=== PATIENT | male | born 1965 | race Caucasian/White ===

== ENCOUNTER → 2023-09-03 13:03 | Outpatient (REF) | payer OTHER, SELFPAY ==
[2023-09-03 14:01] LABS: Blood Urea Nitrogen 14 mg/dl (9-20); Calcium 9.6 mg/dl (8.4-10.2); Carbon Dioxide 26 mmol/L (22-30); Chloride 104 mmol/L (98-107); Glucose 71 mg/dl (70-99); Potassium 4.5 mmol/L (3.5-5.1); Sodium 140 mmol/L (135-145); eGFR > 60.00
== END ==
LOC: RAD 13:03
PROVIDERS: ATTENDING PHYSICIAN Family Medicine; FAMILY PHYSICIAN Family Medicine
DX: R22.0 Localized swelling, mass and lump, head (principal)
CPT/HCPCS: 36415; 70470; 80048; Q9967

== ENCOUNTER 2023-09-05 19:20 | Inpatient (IN) | payer OTHER, SELFPAY ==
[2023-09-05 14:51] VITALS: BMI 38.1
[2023-09-05 14:54] VITALS: BP 171/96
[2023-09-05 15:28] LABS: % Basophils 0.7 % (0-2); % Eosinophils 3.6 % (0-6); % Immature Granulocytes 0.3 % (0-0.5); % Lymphocytes 25.6 % (20.5-51.1); % Monocytes 13.8 % (1.7-9.3); Absolute Eosinophils 0.2 10^3/uL (0-0.7); Absolute Lymphocytes 1.5 10^3/uL (1.2-3.4); Absolute Monocytes 0.8 10^3/uL (0.1-0.6); Absolute Neutrophils 3.2 10^3/uL (1.4-6.5); Hematocrit 42.6 % (39.0-52.0); Hemoglobin 15.5 g/dL (13.0-18.0); Mean Corp Hgb Conc. 36.4 g/dL (33.0-37.0); Mean Corpuscular Hgb 30.9 pg (27.0-31.0); Mean Corpuscular Volume 84.9 fL (80.0-94.0); Mean Platelet Volume 8.6 fL (7.4-10.4); Nucleated Red Blood Cells % 0 % (-); Platelet Count 201 10^3/uL (130-400); Red Blood Cell Count 5.02 10^6/uL (4.70-6.10); Red Cell Dist. Width 12.6 % (11.5-14.5); White Blood Cell Count 5.8 10^3/uL (4.8-10.8)
[2023-09-05 15:38] LABS: Lactic Acid 1.5 mmol/L (0.7-2.0)
[2023-09-05 15:40] LABS: ALT (SGPT) 28 U/L (0-50); AST (SGOT) 26 U/L (17-59); Albumin 4.3 g/dl (3.5-5.0); Alkaline Phosphatase 80 U/L (38-126); Blood Urea Nitrogen 12 mg/dl (9-20); Calcium 9.1 mg/dl (8.4-10.2); Carbon Dioxide 22 mmol/L (22-30); Chloride 105 mmol/L (98-107); Glucose 118 mg/dl (70-99); Potassium 4.1 mmol/L (3.5-5.1); Sodium 136 mmol/L (135-145); Total Bilirubin 0.6 mg/dl (0.2-1.3); Total Protein 7.3 g/dl (6.3-8.2); eGFR > 60.00
--- NOTE | 2023-09-05 16:27 | ED.GENMED ---
History of Present Illness
General
Chief Complaint: Skin Problem
Source: patient
Exam Limitations: none
Time Seen by Provider: 09/05/23 16:06
Nursing documentation reviewed up to this point in time: agreed with
History of Present Illness
History of Present Illness:
57-year-old male with a past medical history of OLGA on nightly CPAP who presents to the emergency department for evaluation of right-sided facial swelling. Patient reports onset of symptoms about a week ago�he reports that he had some subtle
swelling in the periorbital region that extended towards the right preauricular area. He says that initially symptoms were subtle but they were progressive over the past week and ultimately saw his primary doctor a few days ago (Friday). He had
an outpatient CT scan of the head which showed signs consistent with right-sided parotitis. He was prescribed Augmentin which she has been taking since that time however symptoms have actually been worsening rather than improving and he has had
increasing swelling particularly in the periorbital region. His eyelid is now significantly swollen. He says that he developed a minor wound in the right forehead and increasing redness. He says it is starting to cause him increasing pain. Was
referred to the emergency room for assessment. He says he did have some chills but no fever. He denies any tongue swelling or sensation of throat swelling. He denies any pain in the eye itself or loss of vision. He denies any trauma. No edema
in the rest of extremities. He denies any headache or neck pain or any other complaints.
Past History
Past History
ED Past Medical History: Hypercholesterolemia
ED Past Surgical History: None
Social History
Tobacco: Non-smoker
Alcohol: Occasional
Personal:
Living: with family
Employment: Employed
Family History
Family History: Negative Early CAD or CAD
Review of Systems
Review of Systems
All Other Systems: ROS reviewed and negative except as documented in HPI and ROS
Constitutional: Reports chills; Denies fever
EENT: Reports other (Facial swelling); Denies sore throat
Respiratory: Denies cough or trouble breathing
ABD/GI: Denies vomiting
Musculoskeletal: Denies edema
Neurological: Denies dizzy or headache
Phy Exam
Physical Exam
Physical Exam:
General: Awake, alert, oriented x3; no acute distress
Head: Normocephalic, atraumatic
Eyes: Conjunctiva normal, EOMI, pupils equal round and reactive to light bilaterally; he has significant right periorbital edema
Ears: External ear is normal bilaterally with no swelling; he has tenderness and swelling and some induration in the right preauricular region
Nose: No blood in nares, no swelling of the turbinates
Throat: Airway intact, handling secretions, no tongue swelling or tongue elevation, midline uvula
Neck: Trachea midline, supple without meningismus, no palpable adenopathy
Lungs: Breathing comfortably no distress
Heart: Regular rate
Neuro: Cranial nerves grossly intact, speech fluid
Skin: Patient has erythema of the right side of his face most notably in the right forehead where he also has a minor superficial wound with overlying eschar (approximately 0.5 cm diameter); he has significant periorbital edema but also has edema in
the right maxillary and preauricular region as well as in the right forehead; no erythema or edema in the submental region (picture below)
Extremities: No edema in extremities, equal pulses in all extremities
Scores
Heart Failure Risk
Heart Failure Risk Score: Not Applicable
Heart Score for Chest Pain Patients
STEMI patient?: Not applicable
Withdrawal Assessment of Alcohol
Withdrawal Assessment Completed?: Not applicable
Course
Orders/Labs/Results
Orders:
Orders
09/05/23 15:18
Complete Blood Count/With Diff Urgent
Comprehensive Metabolic Panel Urgent
Lactic Acid Q4H
Comment: ON ICE, CANCEL 2ND ORDER IF FIRST LACTIC ACID LEVEL <2
Lactic Acid Q4H
Comment: ON ICE, CANCEL 2ND ORDER IF FIRST LACTIC ACID LEVEL <2
09/05/23 16:18
CT Facial Bones W/ Iv Contrast Urgent
Comment:
Reason For Exam: R facial swelling (maxilla, periorbital, forehead)
09/05/23 17:51
Vancomycin [Vancocin] 1,500 mg 0.9% Sodium Chloride [Nss] 20 ml 0.9% Sodium Chloride 250 ml [Nss] 250 ml IV NOW
09/05/23 17:52
Ampicillin/Sulbactam 3 G [Unasyn] 3 gm 0.9% Sodium Chloride 100 ml [Nss] 100 ml IV NOW
09/05/23 17:57
ENT CONSULT Routine
Consulting Provider: Irvin Mercedes
Was physician already notified: Yes
Abnormal Lab Results
09/05/23
15:18
Absolute Monos (auto) 0.8 H 10^3/uL
(0.1-0.6)
Monocytes % 13.8 H %
(1.7-9.3)
Glucose 118 H mg/dl
(70-99)
09/05/23 15:18
09/05/23 15:18
Vital Signs
Initial and Last Documented VS:
Initial Vital Signs
Temp Pulse Resp BP Pulse Ox
37.2 C 93 16 171/96 98
09/05/23 14:54 09/05/23 14:54 09/05/23 14:54 09/05/23 14:54 09/05/23 14:54
Last Documented Vital Signs
Temp Pulse Resp BP Pulse Ox
37.2 C 93 16 171/96 98
09/05/23 14:54 09/05/23 14:54 09/05/23 14:54 09/05/23 14:54 09/05/23 14:54
MDM/Problems Addressed
Differential Diagnosis Includes:
Facial cellulitis, severe parotitis, SVC syndrome
MDM/Problems Addressed:
57-year-old male presents with progressive right-sided facial swelling over the past week not improving after 72 hours of p.o. Augmentin. Hypertensive but otherwise normal vitals. Physical exam as above. Will check basic labs including CBC and
CMP. Given significant progression of symptoms in the past [address] scan of the face. Will monitor closely reassess after the above.
Labs reviewed: CBC and CMP unremarkable. CT shows diffuse edema of the right side of the face, question sialoadenitis in the right sublingual gland but very low suspicion that this accounts for his acute symptoms especially given majority of his
symptoms with periorbital and preauricular. I suspect this is likely an acute facial cellulitis and he has failed 3 days of outpatient antibiotics. Case discussed with ENT recommended IV antibiotics and admission, they will consult on patient.
Case discussed with hospitalist for admission.
Acute Exacerbation and/or Progression of Chronic Illness:
Acutely hypertensive
Acute Exacerbation and/or Progression of Chronic Illness: HTN
*Radiology
Radiology exam reviewed: radiology read reviewed
*Pulse Oximetry
Patient hypoxic: no
*Critical Care Note
Total Time (30-74mins, 75-104mins- exclusive of procedures): Not Applicable
Data Reviewed
Review of Other/Old Records Reveals: Radiology Studies (Reviewed outpatient CT scan from 09/03/2023)
Source: patient and records
Patient Management
Discussion with other providers: Hospitalist (Discussed with hospitalist) and Lumber Cutter (Discussed with ENT)
Escalation/DeEscalation of care consider admission/obs:
Admission indicated
ED Attending Note
-
Portions of this chart may have been created with voice recognition software.� Occasional wrong word or��sound alike� substitutions may have occurred due to the inherent limitations of voice recognition software.
Discharge Plan
Departure
Patient Disposition: Admit
Date of Disposition: 09/05/23
Time of Disposition: 18:01
Admit to doctor: Bucky
Presentation/result/management discussed w/ accepting MD/DO: Hospitalist
Discharge Problem:
Facial cellulitis
Prescriptions:
No Action
sulfamethoxazole-trimethoprim 800-160 mg tablet
1 tab PO BID
loratadine [Claritin] 10 mg Tablet
10 mg PO DAILYPRN PRN (Reason: allergies)
amoxicillin-pot clavulanate 875-125 mg tablet
1 tab PO BID
Referrals:
Freddy Du MD [Family Provider] -
Interventions
Interventions:
*Risk Screen - Suicide Last Done: 09/05/23 14:54
*General Assessment Last Done: 09/05/23 14:54
*Neglect/Abuse Screening Last Done: 09/05/23 14:54
ED-Skin Assessment Last Done: 09/05/23 16:36
Discharge Date and Time
Print Language: KOSOVAN
[2023-09-05 18:00] VITALS: BP 148/90
--- NOTE | 2023-09-05 18:19 | HPS.HSE ---
Family Physician
-
Family Physician: Freddy Du
Chief Complaint
-
Facial cellulitis
History of Present Illness
Patient is a 57-year-old male with past medical history significant for seasonal allergies as well as OLGA on CPAP who presents to the emergency department with approximately 1 week of right-sided periorbital redness swelling and tenderness.
Patient started having redness over the nasal bridge use about 2 to 3 weeks ago. He felt this was associated with a CPAP machine. He did have cultures obtained and was found to have a staph in the skin and started on topical cream. A few days
later he started developing redness and swelling right above the right eye and as well as in the oriental orthodox. It felt significant induration and tenderness at that site. He was also noticing some headache as well as chills. On Friday he had
significant headache and he went to the physician. He was diagnosed with cellulitis at that time and told to stop amoxicillin which she started on Friday. He was told that if the symptoms are not improving in 2 days then he can start taking
Bactrim. However patient reported that initially the swelling went down but the main between and Friday it worsened overnight. He also had some chills. Patient denies any known insect bites. He denies any trauma. He reports seasonal
allergies but denies any recent sinus tenderness.
In the ED patient was afebrile, was hypertensive with a blood pressure of 171/96 otherwise hemodynamically stable and in no acute distress. His CBC was without leukocytosis and hemoglobin was completely within normal limits with normal platelet
count. Chemistries were also normal. Patient had a CT of the head which shows a right-sided periorbital and infraorbital edema consistent with cellulitis. There is no fluid collection or abscess noted.
Medical History
Past Medical History
Past Medical History: Reports Other (OLGA on CPAP)
Past Surgical History: Reports None
Social History
Tobacco: Non-smoker
Alcohol: Occasional
Drug: None
Personal: Single
Living: Alone
Employment: Employed
Family History
Family History: Cancer (Mother with h/o colon ca, ) and Diabetes
Allergies / Home Medications
Allergies reflects when Allergies were last updated in [facility].
Home Medications with original date entered in [facility]
Allergy/Medication List:
Allergies
Allergy/AdvReac Type Severity Reaction Status Date / Time
No Known Allergies Allergy Verified 09/05/23 14:53
Home Medications
amoxicillin 875 mg-potassium clavulanate 125 mg tablet 1 tab PO BID 09/05/23
loratadine 10 mg tablet (Claritin) 10 mg PO DAILYPRN PRN allergies 09/05/23
sulfamethoxazole 800 mg-trimethoprim 160 mg tablet 1 tab PO BID 09/05/23
Review of Systems
-
History Source: Patient
Constitutional: Reports Chills
EENT: Reports Runny Nose and Other (headache, facial pain)
Respiratory: Reports No Symptoms
Cardiac: Reports No Symptoms
Abdomen/GI: Reports No Symptoms
: Reports No Symptoms
Musculoskeletal: Reports No Symptoms
Skin: Reports Rash
Neurological: Reports No Symptoms
Endocrine: Reports No Symptoms
Hematologic/Lymphatic: Reports No Symptoms
Psych: Reports No Symptoms
Physical Exam
Vital Signs
Vital Signs
Temp Pulse Resp BP Pulse Ox
99 F 93 16 171/96 98
09/05/23 14:54 09/05/23 14:54 09/05/23 14:54 09/05/23 14:54 09/05/23 14:54
Physical Exam
General: Well Developed and Comfortable
HEENT: NormoCephalic, Anicteric, Moist mucous membranes, PERRLA and Other (Eschar above the right eyelid with surrounding erythema, tenderness and induration. Moderate swelling and induration along the right zygomatic arch and oriental orthodox)
Respiratory: Clear
Cardiac: S1/S2
Breast: Deferred by me
GI: Soft, Non Tender and Non Distended
Rectal: Other
Genito-urinary: Deferred by me
Musculoskeletal: No Clubbing, No Cyanosis and No Edema
Skin: Warm
Neuro: AO x 3
Hematologic/Lymphatic: No Lymphadenopathy
Psych: Calm
Laboratory Results
-
09/05/23 15:18
09/05/23 15:18
Laboratory Results
Lactic Acid 1.5 mmol/L (0.7-2.0) 09/05/23 15:18
Lactic Acid 1.5 mmol/L (0.7-2.0) 09/05/23 15:18
Total Bilirubin 0.6 mg/dl (0.2-1.3) 09/05/23 15:18
AST 26 U/L (17-59) 09/05/23 15:18
ALT 28 U/L (0-50) 09/05/23 15:18
Alkaline Phosphatase 80 U/L (38-126) 09/05/23 15:18
Data Reviewed
-
CT Scan: Report Reviewed by me
Lab Data: Labs Reviewed by me
Impression/Plan
-
IMPRESSION:
PLAN:
1. Preseptal Cellulitis - Patient with likely cellulitis w/o abscess. No orbital involvement. No h/o trauma. No obvious sinusitis. Appears to have failed outpatient Augmentin. Started on bactrim today but symptoms already worse. H/O facial
staph colonization or infection per patient long term but unclear if MRSA. Currently hemodynamically stable, low grade temp. ENT to see in am.
- admit to gen med
- agree with vanc/zosyn for now
- blood cultures if febrile
- sereial examinations
- ENT notified and to see in am.
2. OLGA
- CPAP 14 HS
3. HTN - BP elevated today but denies h/o HTN
- monitor for now, pain control and re-evaluate
DVT PPX - lovenox sq
Full Code
[2023-09-05] MEDS: UNASYN IV ×2 (18:25→23:17)
[2023-09-05] MEDS: VANCOCIN 300 MG IV (19:06)
[2023-09-05] MEDS: VANCOCIN 300 ML IV (19:06)
[2023-09-05 20:00] VITALS: BP 133/83
[2023-09-05 20:22] VITALS: BP 150/92; BMI 37.8
--- NOTE | 2023-09-05 20:42 | PHA.VAN.IN ---
Assessment
- Assessment
Renal Function: Appears similar to baseline
Concomitant Antimicrobials: UNASYN
- Previous Dosing Experience
Previous Regimen: NONE
AUC Dosing Plan
- Dosing Variables
Dosing Weight (kg): 116.2
Dosing CrCl (ml/min): 100
Vd coefficient (L/kg): 0.6
- Empiric Dosing
Initial / Loading Dose: 2GM TOTAL
Maintenance Regimen: 1500MG IV Q12H
Estimated AUC (mcg*h/mL): 525
Estimated Peak (mcg*h/mL): 33.1
Estimated Trough (mcg/ml): 13.2
Estimated Half Life (H): 7.9
Pharmacokinetics Vancomycin I
- -
Patient Age: 57
Patient Sex: Male
Vancomycin Day #: 1
Indication: Skin And Soft Tissue (PRE-SEPTAL CELLULITIS)
Requesting Provider: MUSTAPHA
Height / Weight:
Height 5 ft 9 in
Actual Weight 116.176 kg
Pertinent Past Medical History: FAILED OUTPATIENT TX W/AUGMENTIN
- Vital Signs / Lab Results
Temp Pulse Resp BP Pulse Ox
98.2 F 79 18 150/92 96
09/05/23 20:22 09/05/23 20:22 09/05/23 20:22 09/05/23 20:22 09/05/23 20:22
Lab Results - Hematology
09/05/23
15:18
WBC 5.8
Lab Results - Chemistry
09/05/23
15:18
BUN 12
Creatinine 0.8
Albumin 4.3
09/05/23 09/05/23
15:18 15:18
Lactic Acid 1.5 1.5
[2023-09-05] MEDS: BENADRYL 25 MG IV (21:21)
[2023-09-05] MEDS: VANCOCIN HCL 500 MG 100 IV (22:04)
[2023-09-05 22:30] VITALS: PULSE 76
[2023-09-05 23:10] VITALS: BP 119/79
--- NOTE | 2023-09-05 23:11 | PTCARENOTE ---
Pt. arrived to unit from ED via stretcher. Pt. able to safely ambulate into room 336-1 on . Pt. with IV Vanco running upon transfer to floor. Head and face noted to be red, patient c/o of itchiness. Infusion paused. MADDIE Parkinson
notified. Instructed to run vanco at slower rate and stat benedryl x1 ordered. Pt. reports feeling better after. Redness noted to be lesser. Pt. AAOx3 and able to make needs known. Oriented to unit. Call pacheco within reach. Plan of care ongoing.
[2023-09-06] MEDS: UNASYN IV ×2 (05:31→12:46)
[2023-09-06] MEDS: TYLENOL 650 MG PO ×2 (05:36→12:52)
[2023-09-06] MEDS: VANCOCIN 300 MG IV ×2 (06:09→18:01)
[2023-09-06] MEDS: VANCOCIN 300 ML IV ×2 (06:09→18:01)
[2023-09-06 07:30] VITALS: BP 127/85
[2023-09-06 07:33] LABS: Hematocrit 43.5 % (39.0-52.0); Hemoglobin 15.5 g/dL (13.0-18.0); Mean Corp Hgb Conc. 35.6 g/dL (33.0-37.0); Mean Corpuscular Hgb 31.1 pg (27.0-31.0); Mean Corpuscular Volume 87.2 fL (80.0-94.0); Mean Platelet Volume 8.9 fL (7.4-10.4); Platelet Count 199 10^3/uL (130-400); Red Blood Cell Count 4.99 10^6/uL (4.70-6.10); Red Cell Dist. Width 12.6 % (11.5-14.5); White Blood Cell Count 7.1 10^3/uL (4.8-10.8)
[2023-09-06 08:11] LABS: Blood Urea Nitrogen 15 mg/dl (9-20); Calcium 8.8 mg/dl (8.4-10.2); Carbon Dioxide 22 mmol/L (22-30); Chloride 104 mmol/L (98-107); Estimated Creatinine Clearance 117 ml/min; Glucose 106 mg/dl (70-99); Potassium 4.2 mmol/L (3.5-5.1); Sodium 138 mmol/L (135-145); eGFR > 60.00
--- NOTE | 2023-09-06 08:31 | PHA.VAN.FU ---
Vancomycin Assessment / Plan
- Assessment
Renal Function: Stable
WBC's are: Stable
In the past 24 hrs, patient has been: Afebrile
Concomitant Antimicrobials: Unasyn
- Dosing Plan
Continue: Vanc 1500mg IV q12h
- Monitoring Plan
No level(s) ordered at this time: Consider levels after 09/06 1800 dose
- Follow Up
Pharmacy will continue to follow.
Vancomycin Follow UP
- -
Patient Age: 57
Patient Sex: Male
Vancomycin Day #: 2
Indication: Skin And Soft Tissue (PRE-SEPTAL CELLULITIS)
Requesting Provider: MUSTAPHA
Height / Weight:
Height 5 ft 9 in
Actual Weight 116.176 kg
Pertinent Past Medical History: FAILED OUTPATIENT TX W/AUGMENTIN
- Vital Signs / Lab Results
Temp Pulse Resp BP Pulse Ox
98.1 F 78 16 127/85 93
09/06/23 07:30 09/06/23 07:30 09/06/23 07:30 09/06/23 07:30 09/06/23 07:30
Lab Results - Hematology
09/05/23 09/06/23
15:18 06:00
WBC 5.8 7.1
Lab Results - Chemistry
09/05/23 09/06/23
15:18 06:00
BUN 12 15
Creatinine 0.8 0.9
Estimated Creat Clear 117
Albumin 4.3
09/05/23 09/05/23
15:18 15:18
Lactic Acid 1.5 1.5
--- NOTE | 2023-09-06 10:42 | W.PN.HOSP.TC ---
Today's Communication/Plan
-
see outlined plan
Assessment / Plan
Assessment / Plan
Assessment:
Preseptal cellulitis, R face
- failed OP Abx (Augmentin, Bactrim)
- CT: Right sublingual sialoadenitis with right cervical lymphadenopathy and right periorbital, infraorbital and maxillary soft tissue swelling/edema but no abscess
- no Orbital involvement, no trauma, no sinusitis
- reported staph culture outpatient
- continue IV Vancomycin - requires intensive monitoring
- continue IV Unasyn
- ENT and ID evaluations; may consider steroids to help with swelling
OLGA
- on CPAP 14 HS
Elevated BP from pain
- monitor
DVT ppx: Lovenox
Code: Full
Anticipated Discharge: > 48 hours
Subjective/Interval History
-
Date of Service: September 06, 2023
reports ongoing swelling around R eye, reports fluctuance around R parotid area
Objective Data
-
Labs:
Laboratory Results
09/06/23
06:00
WBC 7.1
Hgb 15.5
Hct 43.5
Plt Count 199
Sodium 138
Potassium 4.2
Chloride 104
Carbon Dioxide 22
BUN 15
Creatinine 0.9
Glucose 106 H
Calcium 8.8
Vital Signs:
Vital Signs
Temp Pulse Resp BP Pulse Ox
98.1 F 78 16 127/85 93
09/06/23 07:30 09/06/23 07:30 09/06/23 07:30 09/06/23 07:30 09/06/23 07:30
I&O
09/05/23 09/06/23 09/07/23
06:59 06:59 06:59
Intake Total 480 / 480
Balance 480 / 480
Physical Exam
-
General: No Apparent Distress
HEENT: Normocephalic, Atraumatic and Other (Eschar above the right eyelid with surrounding erythema, tenderness and induration. Moderate swelling and induration along the right zygomatic arch and holiness)
Respiratory: Negative Wheezes or Rales
Cardiac: Regular Rhythm and S1/S2
GI: Soft and Nontender
Genito-urinary: No Costovertebral Tender
Neuro: AO x 3
Hematologic / Lymphatic: No Lymphadenopathy
Psych: Calm
Data Reviewed
-
Total Time Spent with Patient (in minutes): 51
Labs: Labs Reviewed by me
--- NOTE | 2023-09-06 12:38 | CON.MD ---
Consultation - Medical
-
Patient seen and evaluated at the bedside.
Full consult dictated.
A/P 57-year-old male with right-sided facial and preorbital cellulitis.
-This seems to me most consistent with an insect bite, possibly a spider.
-Patient has an area of ulceration just above lateral aspect of right brow.
-The swelling is likely spreading down from the site of the bite and causing preseptal edema around the right eye.
-Patient has some reactive lymphadenopathy in the parotid and in the submental area as well.
-CT scan reviewed, no evidence of any sinus infection.
-Patient does not have an elevated white blood cell count, afebrile.
-His symptoms may be more inflammatory than infectious. However, I would continue to cover him with antibiotics.
-Infectious disease to see patient.
-Would add Bactroban topically over right eye to area of skin breakdown.
-Lab test for Lyme disease.
-Start IV Decadron to help with swelling.
-Can treat with Benadryl as well.
-Keep head elevated.
-I will follow the patient along with you.
[2023-09-06] MEDS: DECADRON 4 MG IV ×3 (12:46→23:59)
--- NOTE | 2023-09-06 13:44 | CON.ID ---
Consultation
-
Date/Time Consultation Requested: 09/06/2023 08:03
Date/Time Consultation Performed: 1330
Requesting Provider: Dr. Rascon
Performing Provider: Dr. Yee
Reason for Consultation: Facial cellulitis
Chief Complaint / Past History
History of Present Illness
Trent Aviles is a 57-year-old man being evaluated at the request of Dr. Rascon in regards to facial cellulitis. History is obtained from chart review, along with patient interview. The patient has significant past medical history only for
dyslipidemia and obstructive sleep apnea and reports that approximately 1 week ago he began to have some right facial swelling. He saw his PCP and an outpatient CT was ordered which revealed parotitis. Patient was started on Augmentin, but
presents to [facility] on 09/04 secondary to worsening symptoms including increasing swelling of the periorbital region, along with some intermittent chills. He denied any fever. He denies any eye pain or change in vision. No history of
trauma to the area.
The patient additionally reports that he follows with dermatology and saw them approximately 1 month ago. He admits to occasional drainage in the nasolabial fold area and previously was prescribed mupirocin for a 'staph infection'. He does not
know whether this meant coag negative staph, MSSA or MRSA. At present, he notes that the swelling of his right eye has improved, even since this morning. He reports no difficulty with his vision. He notes prior history of scalp folliculitis.
Past History
Additional Past Medical History:
OLGA (uses CPAP)
Dyslipidemia
Past Surgical History: None
Allergy History:
No Known Allergies Allergy (Verified 09/05/23 14:53)
Medications Reviewed: Yes
Current Antibiotics:
Vancomycin
Unasyn
Social History
Tobacco: Non-Smoker
Alcohol: None
Drug: None
Personal:
Living: With Family
Employment: Employed
Review of Systems
Vital Signs
Temp Pulse Resp BP Pulse Ox
98.1 F 78 16 127/85 93
09/06/23 07:30 09/06/23 07:30 09/06/23 07:30 09/06/23 07:30 09/06/23 07:30
Physical Exam
Physical Exam
Constitutional: No Acute Distress, Comfortable and Non-toxic
Eyes: Pupils Equal, No Conjunctival Hemorrhage, Sclera Anicteric and Other (Right eyelid swelling noted.)
Oral: No Thrush and No Ulcers
Cardiovascular: S1/S2; Negative S3/S4
Pulmonary: Non Labored
Gastrointestinal: Soft, Non Tender and Non Distended
Extremities: Negative Cyanosis or Erythema
Neurological: Awake and Alert
Psychological: Calm
Lab / Diagnostic Study Results
09/06/23 06:00
09/06/23 06:00
Abs Immat Gran (auto) 0.0 10^3/uL (0-0.05) 09/05/23 15:18
Absolute Neuts (auto) 3.2 10^3/uL (1.4-6.5) 09/05/23 15:18
Absolute Lymphs (auto) 1.5 10^3/uL (1.2-3.4) 09/05/23 15:18
Absolute Monos (auto) 0.8 10^3/uL (0.1-0.6) H 09/05/23 15:18
Absolute Basos (auto) 0.0 10^3/uL (0-0.2) 09/05/23 15:18
Immature Gran % 0.3 % (0-0.5) 09/05/23 15:18
Neutrophils % 56.0 % (42.2-75.2) 09/05/23 15:18
Lymphocytes % 25.6 % (20.5-51.1) 09/05/23 15:18
Monocytes % 13.8 % (1.7-9.3) H 09/05/23 15:18
Eosinophils % 3.6 % (0-6) 09/05/23 15:18
Basophils % 0.7 % (0-2) 09/05/23 15:18
Lactic Acid 1.5 mmol/L (0.7-2.0) 09/05/23 15:18
Lactic Acid 1.5 mmol/L (0.7-2.0) 09/05/23 15:18
Assessment / Plan
Right facial cellulitis
Periorbital cellulitis
Suspected right parotitis
Recommendations:
Continue with vancomycin. Transition Unasyn to cefazolin.
Continue to follow clinically. If improvement over the next 24 hours, may be able to transition to oral therapy.
--- NOTE | 2023-09-06 15:02 | CM ---
Chart reviewed and met with pt
Admitted with preseptal cellulitis - receiving IV antibiotics
Pt reports lives alone in a multi-story home
Independent, works FT as chief legal officer
DME - CPAP with [employer]
SNF/HH - no hx
PCP - Dr Freddy Callahan
Pharm - [facility]
CM will follow for d/c needs
Plan - Anticipate home no needs
[2023-09-06 15:45] VITALS: BP 134/74
[2023-09-06] MEDS: ANCEF 10 IV ×2 (16:32→23:57)
[2023-09-06] MEDS: BACTROBAN 2% OINTMENT 1 APPLIC TOPICAL ×2 (16:33→21:33)
[2023-09-06 22:45] VITALS: PULSE 88
[2023-09-06 23:29] VITALS: BP 138/80
[2023-09-07] MEDS: VANCOCIN 300 MG IV (06:13)
[2023-09-07] MEDS: VANCOCIN 300 ML IV (06:13)
[2023-09-07] MEDS: DECADRON 4 MG IV ×2 (06:13→14:12)
[2023-09-07 07:18] VITALS: BP 127/82
[2023-09-07 07:35] LABS: Hemoglobin 15.8 g/dL (13.0-18.0); Mean Corp Hgb Conc. 35.9 g/dL (33.0-37.0); Mean Corpuscular Hgb 30.6 pg (27.0-31.0); Mean Corpuscular Volume 85.1 fL (80.0-94.0); Platelet Count 246 10^3/uL (130-400); Red Blood Cell Count 5.17 10^6/uL (4.70-6.10); Red Cell Dist. Width 12.1 % (11.5-14.5); White Blood Cell Count 11.8 10^3/uL (4.8-10.8)
[2023-09-07 07:38] LABS: Blood Urea Nitrogen 20 mg/dl (9-20); Calcium 9.8 mg/dl (8.4-10.2); Carbon Dioxide 21 mmol/L (22-30); Chloride 103 mmol/L (98-107); Estimated Creatinine Clearance 117 ml/min; Glucose 183 mg/dl (70-99); Potassium 4.7 mmol/L (3.5-5.1); Sodium 138 mmol/L (135-145); eGFR > 60.00
--- NOTE | 2023-09-07 08:42 | PHA.VAN.FU ---
Vancomycin Assessment / Plan
- Assessment
Renal Function: Stable
WBC's are: Trending Up
In the past 24 hrs, patient has been: Afebrile
Concomitant Antimicrobials: Cefazolin
- Dosing Plan
Continue: Vanc 1500mg IV q12h
- Monitoring Plan
Peak Level: 09/06 at 2100
Trough Level: 09/07 at 0530
- Follow Up
Pharmacy will continue to follow.
Vancomycin Follow UP
- -
Patient Age: 57
Patient Sex: Male
Vancomycin Day #: 3
Indication: Skin And Soft Tissue (PRE-SEPTAL CELLULITIS)
Requesting Provider: MUSTAPHA
Height / Weight:
Height 5 ft 9 in
Actual Weight 116.176 kg
Pertinent Past Medical History: FAILED OUTPATIENT TX W/AUGMENTIN
- Vital Signs / Lab Results
Temp Pulse Resp BP Pulse Ox
97.6 F 89 16 127/82 93
09/07/23 07:18 09/07/23 07:18 09/07/23 07:18 09/07/23 07:18 09/07/23 07:18
Lab Results - Hematology
09/05/23 09/06/23 09/07/23
15:18 06:00 05:35
WBC 5.8 7.1 11.8 H
Lab Results - Chemistry
09/05/23 09/06/23 09/07/23
15:18 06:00 05:35
BUN 12 15 20
Creatinine 0.8 0.9 0.9
Estimated Creat Clear 117 117
Albumin 4.3
09/05/23 09/05/23
15:18 15:18
Lactic Acid 1.5 1.5
[2023-09-07] MEDS: BACTROBAN 2% OINTMENT 1 APPLIC TOPICAL (09:50)
[2023-09-07] MEDS: ANCEF 10 IV (09:50)
--- NOTE | 2023-09-07 09:54 | W.PN.HOSP.TC ---
Today's Communication/Plan
-
await ENT/ID recs, for now continue IV abx/steroids
Assessment / Plan
Assessment / Plan
Assessment:
Preseptal cellulitis, R face
- failed OP Abx (Augmentin, Bactrim)
- CT: Right sublingual sialoadenitis with right cervical lymphadenopathy and right periorbital, infraorbital and maxillary soft tissue swelling/edema but no abscess
- no Orbital involvement, no trauma, no sinusitis
- reported staph culture outpatient
- continue IV Vancomycin - requires intensive monitoring
- continue IV Ancef
- continue Decadron
- appreciate ENT and ID recs
OLGA
- on CPAP 14 HS
Elevated BP from pain
- monitor
DVT ppx: Lovenox
Code: Full
Anticipated Discharge: Within 24 hours
Subjective/Interval History
-
Date of Service: September 07, 2023
denies any new complaints at present
reports swelling improving and able to easily open R eyelid
Objective Data
-
Labs:
Laboratory Results
09/07/23
05:35
WBC 11.8 H
Hgb 15.8
Hct 44.0
Plt Count 246 D
Sodium 138
Potassium 4.7
Chloride 103
Carbon Dioxide 21 L
BUN 20
Creatinine 0.9
Glucose 183 H
Calcium 9.8
Vital Signs:
Vital Signs
Temp Pulse Resp BP Pulse Ox
97.6 F 89 16 127/82 93
09/07/23 07:18 09/07/23 07:18 09/07/23 07:18 09/07/23 07:18 09/07/23 07:18
I&O
09/06/23 09/07/23 09/08/23
06:59 06:59 06:59
Intake Total 480 / 480 1280 / 1280
Balance 480 / 480 1280 / 1280
Physical Exam
-
General: No Apparent Distress
HEENT: Normocephalic, Atraumatic and Other (R eyelid swelling decreased, able to open eyelid more easily, facial cellulitis improving)
Respiratory: Negative Wheezes
Cardiac: Regular Rhythm and S1/S2
GI: Nondistended
Genito-urinary: No Costovertebral Tender
Neuro: AO x 3
Psych: Calm
Data Reviewed
-
Total Time Spent with Patient (in minutes): 52
Labs: Labs Reviewed by me
--- NOTE | 2023-09-07 11:30 | W.PN.ENT ---
Today's Communication
-
Continue antibiotics and steroids.
Can likely be discharged home later today.
Impression / Plan
-
57-year-old male with right facial cellulitis and right preseptal orbital edema.
-Patient has improved overnight.
-Likely from combination of antibiotics and steroids.
-Etiology unclear: Insect bite versus cellulitis.
-Would continue steroids, prednisone taper over 9 days.
-Antibiotics as per ID.
-Continue Bactroban ointment topically.
-Patient can likely be discharged safely home later this evening after his next dose of steroids.
-Patient can follow-up as an outpatient as needed.
Subjective Data
-
Patient improved this morning.
Decreased swelling around right eye.
Denies any significant pain.
Has no fevers or chills.
Vision within normal limits.
Objective Data
-
Vital Signs
Temp Pulse Resp BP Pulse Ox
97.6 F 89 16 127/82 93
09/07/23 07:18 09/07/23 07:18 09/07/23 07:18 09/07/23 07:18 09/07/23 07:18
Intake & Output
09/06/23 09/07/23 09/08/23
06:59 06:59 06:59
Intake:
Oral fluids 480 / 480 1280 / 1280
Other:
Number of approximated MODERATE 2 2
amounts of urine
Lab Results
09/07/23 05:35
09/07/23 05:35
Calcium 9.8 mg/dl (8.4-10.2) 09/07/23 05:35
Total Bilirubin 0.6 mg/dl (0.2-1.3) 09/05/23 15:18
AST 26 U/L (17-59) 09/05/23 15:18
ALT 28 U/L (0-50) 09/05/23 15:18
Alkaline Phosphatase 80 U/L (38-126) 09/05/23 15:18
Physical Exam
-
Awake, alert, oriented, in no acute distress.
1 cm area of scabbing at right lateral eyebrow.
No drainage or bleeding noted.
Moderate erythema surrounding skin without any significant warmth or fluctuance.
Mild erythema and edema of superior eyelid, minimal edema inferiorly on lid.
Significantly improved overall from yesterday.
Minimal conjunctival injection.
Extraocular motions intact, pupils equally round bilaterally.
No proptosis noted.
--- NOTE | 2023-09-07 12:10 | W.PN.ID1 ---
Date of Service
Date of Service: September 07, 2023
Today's Communication
Continue abx. See below...
Assessment / Plan
Right facial cellulitis
Periorbital cellulitis
Suspected right parotitis
Recommendations:
Overall area markedly improved.
Will continue with antibiotic coverage, but transition to oral Keflex 500 mg 500 mg QID / doxycycline 100 mg BID. Each for an additional 5 days.
Chief Complaint
-: Cellulitis
Subjective / Review of Systems
Patient reports feeling improved today. Notes last right facial swelling, and recent ability to open eye.
Review of Systems: No Fever and No Chills
Vital Signs / Physical Exam
Vital Signs
Vital Signs
Temp Pulse Resp BP Pulse Ox
97.6 F 89 16 127/82 93
09/07/23 07:18 09/07/23 07:18 09/07/23 07:18 09/07/23 07:18 09/07/23 07:18
Physical Exam
Constitutional: No Acute Distress, Comfortable and Non-toxic
Eyes: Sclera Anicteric and Other (Decreased edema of right periorbital region. Mild erythema persists on the skin.)
Cardiovascular: S1/S2; Negative S3/S4
Pulmonary: Non Labored
Neurological: Awake and Alert
Psychological: Calm
Objective Data
Lab Data
Lab Results
09/07/23 05:35
09/07/23 05:35
Estimated Creat Clear 117 ml/min 09/07/23 05:35
Lactic Acid 1.5 mmol/L (0.7-2.0) 09/05/23 15:18
Lactic Acid 1.5 mmol/L (0.7-2.0) 09/05/23 15:18
Total Bilirubin 0.6 mg/dl (0.2-1.3) 09/05/23 15:18
AST 26 U/L (17-59) 09/05/23 15:18
ALT 28 U/L (0-50) 09/05/23 15:18
Alkaline Phosphatase 80 U/L (38-126) 09/05/23 15:18
Most recent labs reviewed.
Care Review
Plan reviewed with: Physician (Hospitalist; ENT)
[2023-09-07 13:30] VITALS: BP 134/76
--- NOTE | 2023-09-07 13:30 | W.DS.TRANS ---
DC Summary - Elementary Reading Specialist
-
Discharge Instructions:
Discharge Diagnosis/Procedures R facial cellulitis, periorbital cellulitis, R
parotitis
Diet Regular
Activity As tolerated
Bathing Restrictions None
Instructions:
Stand-Alone Forms:
Changes to Home Medications: No
Discharge Medications:
DC Medications w/original date entered in [facility]
loratadine 10 mg tablet (Claritin) 10 mg PO DAILYPRN PRN allergies 09/05/23
cephalexin 500 mg capsule 500 mg PO QID #28 caps 09/07/23
doxycycline hyclate 100 mg capsule 100 mg PO BID #14 caps 09/07/23
mupirocin 2 % topical ointment 1 applic topical TID 1 day #15 grams 09/07/23
prednisone 10 mg tablet 10 mg PO DIRECTED #18 tabs 09/07/23
Home Medication Changes
Pending Results: No
Total time spent discharging patient (in min): 41
--- NOTE | 2023-09-07 13:31 | W.DS.TRANS ---
DC Summary - Husbandry Technician
-
Discharge Instructions:
Discharge Diagnosis/Procedures R facial cellulitis, periorbital cellulitis, R
parotitis
Diet Regular
Activity As tolerated
Bathing Restrictions None
Instructions:
Stand-Alone Forms:
Changes to Home Medications: No
Discharge Medications:
DC Medications w/original date entered in [facility]
loratadine 10 mg tablet (Claritin) 10 mg PO DAILYPRN PRN allergies 09/05/23
cephalexin 500 mg capsule 500 mg PO QID #28 caps 09/07/23
doxycycline hyclate 100 mg capsule 100 mg PO BID #14 caps 09/07/23
mupirocin 2 % topical ointment 1 applic topical TID 1 day #15 grams 09/07/23
prednisone 10 mg tablet 10 mg PO DIRECTED #18 tabs 09/07/23
Home Medication Changes
Pending Results: No
Total time spent discharging patient (in min): 41
[2023-09-07] MEDS: KEFLEX 500 MG PO (14:13)
[2023-09-08 11:36] LABS: Lyme Antibody Screen, EIA Negative (Negative)
== END 2023-09-07 14:43 | disposition home or self-care (01) | DRG 603 ==
LOC: 3 WEST ACU 19:20
PROVIDERS: Emergency Medicine; ADMITTING PHYSICIAN Internal Medicine; ATTENDING PHYSICIAN Internal Medicine; CONSULT PHYSICIAN Internal Medicine Infectious Disease; CONSULT PHYSICIAN Otolaryngology; EMERGENCY PHYSICIAN Emergency Medicine; FAMILY PHYSICIAN Family Medicine
DX: L03.213 Periorbital cellulitis (principal); I10 Essential (primary) hypertension; G47.33 Obstructive sleep apnea (adult) (pediatric); L98.499 Non-pressure chronic ulcer of skin of other sites with unspecified severity; K11.20 Sialoadenitis, unspecified; Z79.899 Other long term (current) drug therapy
CPT/HCPCS: 70487; 80048; 80053; 83605; 85025; 85027; 86618; 94660; 96365; 96367; 99285; Q9967